=== PATIENT | female | born 1975 | race Caucasian/White ===

== ENCOUNTER 2018-07-18 06:09 | Inpatient (IN) | payer MEDICAID ==
[~2018-07-18] VITALS: Ht 162.6 cm; Wt 87.4 kg
[~2018-07-18 06:09] MED LIST: LOVA1TAB62; OME20GT; SUMA25TA2
[2018-07-18 07:20] LABS: Basophils # (auto) 0.1 uL; Basophils % (auto) 0.4 % (0.0-2.0); Eosinophils # (auto) 0.1 uL; Eosinophils % (auto) 0.6 % (0.0-7.0); Hematocrit 40.4 % (36.0-46.0); Hemoglobin 13.5 g/dL (12.2-16.2); Lymphocytes # (auto) 1.5 uL; Lymphocytes % (auto) 11.7 % (10.0-50.0); Mean Corpuscular Hemoglobin 29.8 pg (28.0-32.0); Mean Corpuscular Hgb Conc. 33.6 g/dL (32.0-36.0); Mean Corpuscular Volume 88.8 fL (80.0-100.0); Monocytes # (auto) 0.6 uL; Monocytes % (auto) 4.4 % (0.0-12.0); Neutrophils # (auto) 10.4 uL; Neutrophils % (auto) 82.9 % (37.0-80.0); Platelet Count (auto) 397 10^3/uL (140-450); Red Blood Cells 4.55 10^6/uL (4.0-5.20); Red Cell Distribution Width 13.8 % (11.8-14.3); White Blood Cell 12.6 10^3/uL (4.4-10.8)
[2018-07-18 07:28] LABS: Alanine Aminotransferase 23 U/L (13-56); Anion Gap 12 (5-15); Aspartate Aminotransferase 27 U/L (15-37); Blood Urea Nitrogen 13 mg/dL (7-18); Calcium 8.5 mg/dL (8.5-10.1); Carbon Dioxide 18 mmol/L (21-32); Chloride 104 mmol/L (98-107); GFR African American 57 mL/min; GFR Non-African American 47 mL/min; Glucose 86 mg/dL (74-106); Potassium 3.7 mmol/L (3.5-5.1); Sodium 134 mmol/L (136-145)
[2018-07-18 07:38] LABS: Alkaline Phosphatase 164 U/L (45-117); Bilirubin, Total 0.7 mg/dL (0.2-1.0); Total Protein 8.5 g/dL (6.4-8.2)
[2018-07-18] MEDS ORDERED: SODIUM CHLORIDE 0.9% 1,000 ML IV ONE (08:15)
[2018-07-18] MEDS ORDERED: KETOROLAC TROMETH 30 MG/ML 1ML VIAL IV ONE (08:15)
[2018-07-18 08:34] LABS: Urine Bacteria FEW /hpf (None Seen); Urine Blood 3+ /uL (Negative); Urine Specific Gravity 1.015 (1.001-1.035); Urine WBC 31 /hpf (0 - 5)
[2018-07-18] MEDS ORDERED: MORPHINE SULFATE 4 MG/ML SYR/VIAL IV PRN (11:00)
[2018-07-18] MEDS ORDERED: cefTRIAXone 1GM/10ml IVPUSH 10 ML IV ONE (11:00)
[2018-07-18] MEDS ORDERED: FAMOTIDINE (10MG/ML) 2ML VL IV SCH (11:00)
[2018-07-18] MEDS ORDERED: ACETAMINOPHEN 500 MG TAB PO PRN (11:00)
[2018-07-18] MEDS ORDERED: NITROGLYCERIN 0.4 MG SL TAB SL PRN (11:00)
[2018-07-18] MEDS ORDERED: TEMAZEPAM 15 MG CAP PO PRN (11:00)
[2018-07-18] MEDS: PANTOPRAZOLE 40 MG TAB PO SCH (11:39)
[2018-07-18] MEDS: SODIUM CHLORIDE 0.9% 1,000 ML IV SCH ×2 (11:39→18:39)
[2018-07-18] MEDS ORDERED: SULF400T11 PO (13:19)
[2018-07-18] MEDS ORDERED: HYDR-4683 PO (13:19)
[2018-07-18] MEDS ORDERED: ATOR40TA52 PO (13:19)
[2018-07-18] MEDS ORDERED: AMLO5TAB13 PO (13:19)
[2018-07-18] MEDS: ONDANSETRON HCL 4 MG/2 ML VIAL IV PRN (16:35)
[2018-07-18] MEDS: KETOROLAC TROMETH 30 MG/ML 1ML VIAL IV PRN (16:35)
[2018-07-18 16:47] VITALS: BP 128/86
[2018-07-18 20:00] VITALS: BP 136/94
[2018-07-18] MEDS: traMADol HCL 50 MG TAB PO PRN (21:36)
[2018-07-18] MEDS: LORazepam 0.5 MG TAB PO PRN (21:37)
[2018-07-18 21:48] VITALS: BP 136/94
[2018-07-19] MEDS: SODIUM CHLORIDE 0.9% 1,000 ML IV SCH ×3 (02:46→19:01)
[2018-07-19 04:55] VITALS: BP 143/94
[2018-07-19 06:10] LABS: Basophils # (auto) 0 uL; Basophils % (auto) 0.3 % (0.0-2.0); Eosinophils # (auto) 0.1 uL; Eosinophils % (auto) 0.6 % (0.0-7.0); Hematocrit 34.5 % (36.0-46.0); Hemoglobin 11.6 g/dL (12.2-16.2); Lymphocytes # (auto) 1.4 uL; Lymphocytes % (auto) 13.1 % (10.0-50.0); Mean Corpuscular Hemoglobin 29.6 pg (28.0-32.0); Mean Corpuscular Hgb Conc. 33.7 g/dL (32.0-36.0); Mean Corpuscular Volume 87.7 fL (80.0-100.0); Monocytes # (auto) 1.5 uL; Monocytes % (auto) 13.4 % (0.0-12.0); Neutrophils # (auto) 7.9 uL; Neutrophils % (auto) 72.6 % (37.0-80.0); Platelet Count (auto) 339 10^3/uL (140-450); Red Blood Cells 3.93 10^6/uL (4.0-5.20); Red Cell Distribution Width 13.7 % (11.8-14.3); White Blood Cell 10.9 10^3/uL (4.4-10.8)
[2018-07-19 06:32] LABS: Albumin 2.6 g/dL (3.4-5.0); BUN/Creatinine Ratio 10.2; Bilirubin, Total 0.4 mg/dL (0.2-1.0); Calcium 8.1 mg/dL (8.5-10.1); Potassium 3.5 mmol/L (3.5-5.1); Total Protein 7.1 g/dL (6.4-8.2)
[2018-07-19 09:00] VITALS: BP 133/84
[2018-07-19] MEDS: PANTOPRAZOLE 40 MG TAB PO SCH (10:19)
[2018-07-19] MEDS: cefTRIAXone 1GM/10ml IVPUSH 10 ML IV SCH (10:19)
[2018-07-19 13:04] VITALS: BP 138/75
[2018-07-19] MEDS: ONDANSETRON HCL 4 MG/2 ML VIAL IV PRN (15:40)
[2018-07-19] MEDS: KETOROLAC TROMETH 30 MG/ML 1ML VIAL IV PRN (15:43)
[2018-07-19 17:00] VITALS: BP 137/77
[2018-07-19 21:40] VITALS: BP 145/87
[2018-07-20] MEDS: KETOROLAC TROMETH 30 MG/ML 1ML VIAL IV PRN ×2 (00:19→18:32)
[2018-07-20] MEDS: ONDANSETRON HCL 4 MG/2 ML VIAL IV PRN (00:29)
[2018-07-20] MEDS: LORazepam 0.5 MG TAB PO PRN (00:29)
[2018-07-20] MEDS: SODIUM CHLORIDE 0.9% 1,000 ML IV SCH ×3 (02:46→18:46)
[2018-07-20 05:49] VITALS: BP 141/87
[2018-07-20 07:19] LABS: Basophils # (auto) 0.1 uL; Basophils % (auto) 0.6 % (0.0-2.0); Eosinophils # (auto) 0.1 uL; Eosinophils % (auto) 1.3 % (0.0-7.0); Lymphocytes # (auto) 2.1 uL; Lymphocytes % (auto) 20.5 % (10.0-50.0); Mean Corpuscular Hemoglobin 28.9 pg (28.0-32.0); Mean Corpuscular Hgb Conc. 33.5 g/dL (32.0-36.0); Mean Corpuscular Volume 86.3 fL (80.0-100.0); Monocytes # (auto) 1.7 uL; Monocytes % (auto) 16.2 % (0.0-12.0); Neutrophils # (auto) 6.4 uL; Neutrophils % (auto) 61.4 % (37.0-80.0); Platelet Count (auto) 368 10^3/uL (140-450); Red Blood Cells 3.83 10^6/uL (4.0-5.20); Red Cell Distribution Width 13.8 % (11.8-14.3); White Blood Cell 10.4 10^3/uL (4.4-10.8)
[2018-07-20 07:29] LABS: BUN/Creatinine Ratio 16.5; Calcium 8.2 mg/dL (8.5-10.1); Potassium 3.9 mmol/L (3.5-5.1)
[2018-07-20] MEDS: traMADol HCL 50 MG TAB PO PRN (07:46)
[2018-07-20] MEDS ORDERED: TAMSULOSIN HYDROCHLORIDE 0.4 MG CAP PO ONE (08:30)
[2018-07-20 09:00] VITALS: BP 147/92
[2018-07-20] MEDS: cefTRIAXone 1GM/10ml IVPUSH 10 ML IV SCH (10:26)
[2018-07-20] MEDS: PANTOPRAZOLE 40 MG TAB PO SCH (10:26)
[2018-07-20 13:00] VITALS: BP 144/94
[2018-07-20 17:00] VITALS: BP 149/92
[2018-07-20] MEDS: TAMSULOSIN HYDROCHLORIDE 0.4 MG CAP PO SCH (22:08)
[2018-07-20 22:29] VITALS: BP 142/92
[2018-07-21] MEDS: LORazepam 0.5 MG TAB PO PRN ×3 (00:11→21:12)
[2018-07-21] MEDS: traMADol HCL 50 MG TAB PO PRN ×2 (00:11→17:17)
[2018-07-21] MEDS: KETOROLAC TROMETH 30 MG/ML 1ML VIAL IV PRN ×3 (01:49→21:12)
[2018-07-21] MEDS: SODIUM CHLORIDE 0.9% 1,000 ML IV SCH ×3 (02:47→21:12)
[2018-07-21 05:35] VITALS: BP 131/90
[2018-07-21 06:44] LABS: Basophils # (auto) 0.1 uL; Basophils % (auto) 0.5 % (0.0-2.0); Eosinophils # (auto) 0.2 uL; Eosinophils % (auto) 1.9 % (0.0-7.0); Hematocrit 32.9 % (36.0-46.0); Lymphocytes # (auto) 2.5 uL; Lymphocytes % (auto) 24.3 % (10.0-50.0); Mean Corpuscular Hemoglobin 29.1 pg (28.0-32.0); Mean Corpuscular Hgb Conc. 33.4 g/dL (32.0-36.0); Mean Corpuscular Volume 87.2 fL (80.0-100.0); Monocytes # (auto) 1.6 uL; Monocytes % (auto) 15.8 % (0.0-12.0); Neutrophils # (auto) 5.9 uL; Neutrophils % (auto) 57.5 % (37.0-80.0); Nucleated Red Blood Cells % 0.1 %; Platelet Count (auto) 371 10^3/uL (140-450); Red Blood Cells 3.78 10^6/uL (4.0-5.20); Red Cell Distribution Width 13.6 % (11.8-14.3); White Blood Cell 10.3 10^3/uL (4.4-10.8)
[2018-07-21 07:09] LABS: Calcium 8.4 mg/dL (8.5-10.1); Potassium 3.6 mmol/L (3.5-5.1)
[2018-07-21 09:00] VITALS: BP 122/79
[2018-07-21] MEDS ORDERED: IOHEXOL 350 MG/ML 100ML IJ ONE (09:47)
[2018-07-21] MEDS ORDERED: LIDOCAINE 2% (LOCAL ANESTH.) PF 5ml SDV ONE ×3 (09:47→11:51)
[2018-07-21] MEDS: PANTOPRAZOLE 40 MG TAB PO SCH (10:00)
[2018-07-21 10:16] LABS: INR 1.02 (0.9-1.15); Partial Thromboplastin Time 29.4 sec (23.78-33.04); Prothrombin Time 10.9 sec (9.27-12.13)
[2018-07-21] MEDS ORDERED: MIDAZOLAM HCL 1MG/1ML-2 ML VIAL ONE (11:02)
[2018-07-21] MEDS ORDERED: fentaNYL CITRATE 100 MCG/2 ML VL ONE (11:02)
[2018-07-21] MEDS: cefTRIAXone 1GM/10ml IVPUSH 10 ML IV SCH (11:46)
[2018-07-21] MEDS ORDERED: ONDANSETRON HCL 4 MG/2 ML VIAL ONE (12:29)
[2018-07-21 14:54] VITALS: BP 146/86
[2018-07-21] MEDS: VANCOMYCIN 1GM/250ML 250 ML IV SCH (15:42)
[2018-07-21] MEDS: TAMSULOSIN HYDROCHLORIDE 0.4 MG CAP PO SCH (17:16)
[2018-07-21] MEDS: ONDANSETRON HCL 4 MG/2 ML VIAL IV PRN ×2 (17:16→21:12)
[2018-07-21 17:33] VITALS: BP 140/80
[2018-07-21 23:05] VITALS: BP 155/94
[2018-07-22] MEDS: traMADol HCL 50 MG TAB PO PRN ×3 (02:31→20:50)
[2018-07-22] MEDS: SODIUM CHLORIDE 0.9% 1,000 ML IV SCH ×3 (02:46→18:48)
[2018-07-22] MEDS: VANCOMYCIN 1GM/250ML 250 ML IV SCH ×2 (04:20→16:54)
[2018-07-22 05:13] LABS: Basophils # (auto) 0 uL; Basophils % (auto) 0.3 % (0.0-2.0); Eosinophils # (auto) 0.1 uL; Eosinophils % (auto) 0.4 % (0.0-7.0); Hematocrit 31.4 % (36.0-46.0); Hemoglobin 10.5 g/dL (12.2-16.2); Lymphocytes # (auto) 1.8 uL; Lymphocytes % (auto) 11.7 % (10.0-50.0); Mean Corpuscular Hgb Conc. 33.3 g/dL (32.0-36.0); Mean Corpuscular Volume 87.1 fL (80.0-100.0); Monocytes # (auto) 1.5 uL; Monocytes % (auto) 9.8 % (0.0-12.0); Neutrophils # (auto) 12.2 uL; Neutrophils % (auto) 77.8 % (37.0-80.0); Platelet Count (auto) 389 10^3/uL (140-450); Red Cell Distribution Width 13.8 % (11.8-14.3); White Blood Cell 15.7 10^3/uL (4.4-10.8)
[2018-07-22 05:24] VITALS: BP 123/82
[2018-07-22 05:42] LABS: BUN/Creatinine Ratio 15.5; Calcium 7.9 mg/dL (8.5-10.1); Potassium 3.7 mmol/L (3.5-5.1)
[2018-07-22] MEDS: KETOROLAC TROMETH 30 MG/ML 1ML VIAL IV PRN ×3 (07:08→23:04)
[2018-07-22] MEDS: LORazepam 0.5 MG TAB PO PRN ×3 (07:09→20:53)
[2018-07-22 09:00] VITALS: BP 140/96
[2018-07-22] MEDS: cefTRIAXone 1GM/10ml IVPUSH 10 ML IV SCH (09:42)
[2018-07-22] MEDS: PANTOPRAZOLE 40 MG TAB PO SCH (09:42)
[2018-07-22 13:00] VITALS: BP 124/71
[2018-07-22] MEDS ORDERED: LIDOCAINE 1% (LOCAL ANESTH.) PF 5ml SDV ID ONE (15:30)
[2018-07-22 16:49] VITALS: BP 136/73
[2018-07-22] MEDS: TAMSULOSIN HYDROCHLORIDE 0.4 MG CAP PO SCH (16:54)
[2018-07-22] MEDS: ONDANSETRON HCL 4 MG/2 ML VIAL IV PRN ×2 (16:55→20:51)
[2018-07-22] MEDS: SODIUM CHLOR 0.9% PF (SALINE LOCK) 10ML VIAL/SYR IV SCH (21:06)
[2018-07-22 22:00] VITALS: BP 112/55
[2018-07-23] MEDS: VANCOMYCIN 1GM/250ML 250 ML IV SCH (04:28)
[2018-07-23 05:00] VITALS: BP 120/79
[2018-07-23] MEDS: SODIUM CHLORIDE 0.9% 1,000 ML IV SCH ×3 (05:25→18:11)
[2018-07-23] MEDS: KETOROLAC TROMETH 30 MG/ML 1ML VIAL IV PRN (05:25)
[2018-07-23] MEDS: ONDANSETRON HCL 4 MG/2 ML VIAL IV PRN ×2 (05:25→19:49)
[2018-07-23 05:37] LABS: Basophils # (auto) 0 uL; Basophils % (auto) 0.3 % (0.0-2.0); Eosinophils # (auto) 0.2 uL; Eosinophils % (auto) 1.4 % (0.0-7.0); Hematocrit 29.4 % (36.0-46.0); Hemoglobin 9.6 g/dL (12.2-16.2); Lymphocytes # (auto) 2.5 uL; Lymphocytes % (auto) 18.7 % (10.0-50.0); Mean Corpuscular Hemoglobin 28.8 pg (28.0-32.0); Mean Corpuscular Hgb Conc. 32.8 g/dL (32.0-36.0); Mean Corpuscular Volume 87.8 fL (80.0-100.0); Monocytes # (auto) 1.5 uL; Monocytes % (auto) 11.2 % (0.0-12.0); Neutrophils # (auto) 9.1 uL; Neutrophils % (auto) 68.4 % (37.0-80.0); Platelet Count (auto) 408 10^3/uL (140-450); Red Blood Cells 3.35 10^6/uL (4.0-5.20); Red Cell Distribution Width 13.8 % (11.8-14.3); White Blood Cell 13.3 10^3/uL (4.4-10.8)
[2018-07-23 05:53] LABS: BUN/Creatinine Ratio 16.7; Calcium 7.7 mg/dL (8.5-10.1); Potassium 3.6 mmol/L (3.5-5.1)
[2018-07-23 09:00] VITALS: BP 112/68
[2018-07-23] MEDS: cefTRIAXone 1GM/10ml IVPUSH 10 ML IV SCH (09:23)
[2018-07-23] MEDS: SODIUM CHLOR 0.9% PF (SALINE LOCK) 10ML VIAL/SYR IV SCH ×2 (09:23→22:03)
[2018-07-23] MEDS: PANTOPRAZOLE 40 MG TAB PO SCH (09:24)
[2018-07-23] MEDS: traMADol HCL 50 MG TAB PO PRN ×2 (12:14→18:12)
[2018-07-23 13:00] VITALS: BP 130/72
[2018-07-23] MEDS ORDERED: MIDAZOLAM HCL 1MG/1ML-2 ML VIAL ONE (13:21)
[2018-07-23] MEDS ORDERED: fentaNYL CITRATE 100 MCG/2 ML VL ONE (13:21)
[2018-07-23] MEDS ORDERED: IOHEXOL 300 MG/ML 100ML BOTTLE IJ ONE (13:27)
[2018-07-23] MEDS ORDERED: LIDOCAINE 2% (LOCAL ANESTH.) PF 5ml SDV ONE (13:32)
[2018-07-23] MEDS ORDERED: GELATIN 1 SPONGE SIZE 100 TOP ONE (13:32)
[2018-07-23] MEDS ORDERED: IOHEXOL 350 MG/ML 100ML IJ ONE (14:21)
[2018-07-23] MEDS ORDERED: LACTULOSE 20Gm/30ML SOLN PO PRN (16:15)
[2018-07-23] MEDS: LINEZOLID 600MG TABLET PO SCH ×2 (16:26→22:04)
[2018-07-23 16:43] VITALS: BP 130/68
[2018-07-23] MEDS: TAMSULOSIN HYDROCHLORIDE 0.4 MG CAP PO SCH (18:11)
[2018-07-23] MEDS: LORazepam 0.5 MG TAB PO PRN (19:50)
[2018-07-23 22:00] VITALS: BP 124/77
[2018-07-23] MEDS: DOCUSATE SOD 100 MG CAP PO SCH (22:04)
[2018-07-24] MEDS: SODIUM CHLORIDE 0.9% 1,000 ML IV SCH ×3 (02:28→17:43)
[2018-07-24 05:00] VITALS: BP 109/76
[2018-07-24] MEDS: traMADol HCL 50 MG TAB PO PRN ×3 (06:45→22:49)
[2018-07-24 07:37] LABS: Basophils # (auto) 0.1 uL; Basophils % (auto) 0.4 % (0.0-2.0); Eosinophils # (auto) 0.2 uL; Eosinophils % (auto) 1.5 % (0.0-7.0); Hematocrit 28.6 % (36.0-46.0); Hemoglobin 9.5 g/dL (12.2-16.2); Lymphocytes # (auto) 2.4 uL; Lymphocytes % (auto) 19.5 % (10.0-50.0); Mean Corpuscular Hemoglobin 28.7 pg (28.0-32.0); Mean Corpuscular Hgb Conc. 33.2 g/dL (32.0-36.0); Mean Corpuscular Volume 86.4 fL (80.0-100.0); Monocytes % (auto) 8.1 % (0.0-12.0); Neutrophils # (auto) 8.8 uL; Neutrophils % (auto) 70.5 % (37.0-80.0); Platelet Count (auto) 435 10^3/uL (140-450); Red Blood Cells 3.31 10^6/uL (4.0-5.20); White Blood Cell 12.5 10^3/uL (4.4-10.8)
[2018-07-24 07:50] LABS: BUN/Creatinine Ratio 8.5; Calcium 8.1 mg/dL (8.5-10.1); Potassium 3.8 mmol/L (3.5-5.1)
[2018-07-24 08:39] VITALS: BP 114/76
[2018-07-24] MEDS: SODIUM CHLOR 0.9% PF (SALINE LOCK) 10ML VIAL/SYR IV SCH ×2 (09:38→22:00)
[2018-07-24] MEDS: DOCUSATE SOD 100 MG CAP PO SCH ×2 (09:38→22:49)
[2018-07-24] MEDS: PANTOPRAZOLE 40 MG TAB PO SCH (09:38)
[2018-07-24] MEDS: LINEZOLID 600MG TABLET PO SCH ×2 (09:38→22:49)
[2018-07-24 11:51] VITALS: BP 118/86
[2018-07-24] MEDS: LORazepam 0.5 MG TAB PO PRN ×3 (11:57→22:49)
[2018-07-24 16:23] VITALS: BP 130/85
[2018-07-24] MEDS: TAMSULOSIN HYDROCHLORIDE 0.4 MG CAP PO SCH (17:43)
[2018-07-24 22:00] VITALS: BP 141/83
[2018-07-25] MEDS: SODIUM CHLORIDE 0.9% 1,000 ML IV SCH ×2 (02:46→11:22)
[2018-07-25 05:00] VITALS: BP 115/68
[2018-07-25 07:55] LABS: Basophils # (auto) 0.1 uL; Basophils % (auto) 0.5 % (0.0-2.0); Eosinophils # (auto) 0.2 uL; Eosinophils % (auto) 1.7 % (0.0-7.0); Hematocrit 29.5 % (36.0-46.0); Hemoglobin 9.7 g/dL (12.2-16.2); Lymphocytes # (auto) 2.1 uL; Lymphocytes % (auto) 18.7 % (10.0-50.0); Mean Corpuscular Hemoglobin 28.8 pg (28.0-32.0); Mean Corpuscular Hgb Conc. 32.8 g/dL (32.0-36.0); Mean Corpuscular Volume 87.8 fL (80.0-100.0); Monocytes # (auto) 0.9 uL; Monocytes % (auto) 8.2 % (0.0-12.0); Neutrophils # (auto) 7.9 uL; Neutrophils % (auto) 70.9 % (37.0-80.0); Platelet Count (auto) 450 10^3/uL (140-450); Red Blood Cells 3.36 10^6/uL (4.0-5.20); Red Cell Distribution Width 14.3 % (11.8-14.3); White Blood Cell 11.2 10^3/uL (4.4-10.8)
[2018-07-25 08:09] LABS: BUN/Creatinine Ratio 11.8; Calcium 8.2 mg/dL (8.5-10.1); Potassium 3.6 mmol/L (3.5-5.1)
[2018-07-25 08:49] VITALS: BP 115/72
[2018-07-25] MEDS: LINEZOLID 600MG TABLET PO SCH (11:20)
[2018-07-25] MEDS: PANTOPRAZOLE 40 MG TAB PO SCH (11:20)
[2018-07-25] MEDS: DOCUSATE SOD 100 MG CAP PO SCH (11:21)
[2018-07-25] MEDS: SODIUM CHLOR 0.9% PF (SALINE LOCK) 10ML VIAL/SYR IV SCH (11:21)
[2018-07-25 11:25] VITALS: BP 157/97
== END 2018-07-25 16:20 | disposition home or self-care (01) | DRG 720 ==
LOC: EDBD 06:09 → ER 06:10 → TELE 06:11 → TELE-WESTW 14:48
PROVIDERS: ADMIT Internal Medicine; ATTEND Internal Medicine
PROC: 0T9430Z Drainage of Left Kidney Pelvis with Drainage Device, Percutaneous Approach (ICD-10-PCS; principal; 2018-07-21)
PROC: BT1F1ZZ Fluoroscopy of Left Kidney, Ureter and Bladder using Low Osmolar Contrast (ICD-10-PCS; 2018-07-21)
PROC: 02HV33Z Insertion of Infusion Device into Superior Vena Cava, Percutaneous Approach (ICD-10-PCS; 2018-07-22)
DX: A41.9 Sepsis, unspecified organism (principal); N17.0 Acute kidney failure with tubular necrosis; E87.1 Hypo-osmolality and hyponatremia; N13.6 Pyonephrosis; N28.1 Cyst of kidney, acquired; E44.1 Mild protein-calorie malnutrition; N83.202 Unspecified ovarian cyst, left side; I10 Essential (primary) hypertension; F41.9 Anxiety disorder, unspecified; E78.5 Hyperlipidemia, unspecified; E66.3 Overweight; Z82.3 Family history of stroke; Z82.49 Family history of ischemic heart disease and other diseases of the circulatory system; Z83.3 Family history of diabetes mellitus; Z87.442 Personal history of urinary calculi; Z87.440 Personal history of urinary (tract) infections; Z98.51 Tubal ligation status; Z90.49 Acquired absence of other specified parts of digestive tract; Z79.899 Other long term (current) drug therapy; Z68.33 Body mass index [BMI] 33.0-33.9, adult
CPT/HCPCS: 36415; 36569; 71045; 74176; 76856; 76942; 80048; 80053; 80202; 81001; 81025; 85025; 85610; 85730; 87086; 87088; 87186; 96361; 96374; 96375; 99152; A6257; C1729; J0696; J1885; J2001; J2250; J2405

== ENCOUNTER → 2018-08-05 | Outpatient (CLI) | payer MEDICAID ==
[~2018-08-05] MED LIST changes: +AMLO5TAB13 PO; +ATOR40TA52 PO; +HYDR-4683 PO; +IOHEXOL 300 MG/ML 100ML BOTTLE IJ ONE; -LOVA1TAB62; -OME20GT; -SUMA25TA2
== END | disposition home or self-care (01) ==
LOC: XY 13:37
PROVIDERS: ATTEND Urology
DX: N99.528 Other complication of incontinent external stoma of urinary tract (principal)
CPT/HCPCS: 50389; 76000; Q9967

== ENCOUNTER 2019-02-26 10:33 | Emergency (ER) | payer MEDICAID ==
[~2019-02-26] VITALS: Ht 165.1 cm; Wt 83.9 kg
[~2019-02-26 10:33] MED LIST changes: -IOHEXOL 300 MG/ML 100ML BOTTLE IJ ONE
[2019-02-26 11:16] VITALS: BP 150/71
== END 2019-02-26 12:42 | disposition home or self-care (01) ==
LOC: ER 10:33
DX: R05 Cough (principal); T46.5X5A Adverse effect of other antihypertensive drugs, initial encounter; E78.5 Hyperlipidemia, unspecified; I10 Essential (primary) hypertension; Z90.49 Acquired absence of other specified parts of digestive tract; Z87.442 Personal history of urinary calculi; Z98.51 Tubal ligation status; Y92.89 Other specified places as the place of occurrence of the external cause

== ENCOUNTER 2023-12-15 05:28 | Emergency (ER) | payer MEDICAID ==
[~2023-12-15] VITALS: Ht 167.6 cm; Wt 286.0 kg
[~2023-12-15 05:28] MED LIST changes: +ALBUAER3 IN; -AMLO5TAB13 PO; +ASPI-543 PO; +ATOR-47 PO; -ATOR40TA52 PO; +DEXA6TAB6 PO; -HYDR-4683 PO; +LOPE2CAP PO; +ONDA-144 PO
[2023-12-15] MEDS ORDERED: NALOXONE HCL 1MG/ML 2ML SYRINGE ONE (05:40)
[2023-12-15 07:32] LABS: Basophils # (auto) 0 10 ^3/uL (0-0.2); Basophils % (auto) 0.4 % (0.0-2.0); Eosinophils # (auto) 0 10 ^3/uL (0-0.8); Eosinophils % (auto) 0.3 % (0.0-7.0); Hematocrit 41.5 % (36.0-46.0); Hemoglobin 14.1 g/dL (12.2-16.2); Lymphocytes # (auto) 1.1 10 ^3/uL (0.4-5.4); Lymphocytes % (auto) 11.7 % (10.0-50.0); Mean Corpuscular Hemoglobin 29.5 pg (28.0-32.0); Mean Corpuscular Hgb Conc. 33.9 g/dL (32.0-36.0); Monocytes # (auto) 0.4 10 ^3/uL (0-1.3); Monocytes % (auto) 4.7 % (0.0-12.0); Neutrophils # (auto) 7.9 10 ^3/uL (1.6-8.6); Neutrophils % (auto) 82.9 % (37.0-80.0); Red Blood Cells 4.77 10^6/uL (4.0-5.20); Red Cell Distribution Width 14.1 % (11.8-14.3); White Blood Cell 9.5 10^3/uL (4.4-10.8)
[2023-12-15] MEDS: NALOXONE HCL 1MG/ML 2ML SYRINGE IV ONE ×2 (07:37)
[2023-12-15 07:56] VITALS: BP 118/71; PULSE 61; RESP 16; TEMP 98.2; O2SAT 97
[2023-12-15 08:17] LABS: Alanine Aminotransferase 24 U/L (7-40); Albumin 4.7 g/dL (3.2-4.8); Alkaline Phosphatase 76 U/L (46-116); Anion Gap 10 (5-15); Aspartate Aminotransferase 12 U/L (13-40); Bilirubin, Total 0.9 mg/dL (0.2-1.0); Blood Urea Nitrogen 18 mg/dL (9-23); Calcium 9.8 mg/dL (8.7-10.4); Carbon Dioxide 27 mmol/L (20-30); Chloride 103 mmol/L (98-107); Glucose 203 mg/dL (74-106); Potassium 2.9 mmol/L (3.5-5.1); Sodium 140 mmol/L (136-145); Total Protein 7.5 g/dL (5.7-8.2)
[2023-12-15 09:09] LABS: Blood Alcohol < 3.0 mg/dL (<10)
== END 2023-12-15 09:16 | disposition home or self-care (01) ==
LOC: ER 05:28 → EDBD 05:28 → ER 09:16
DX: F19.90 Other psychoactive substance use, unspecified, uncomplicated (principal); I10 Essential (primary) hypertension; E78.5 Hyperlipidemia, unspecified; Z90.49 Acquired absence of other specified parts of digestive tract; Z79.82 Long term (current) use of aspirin; Z79.899 Other long term (current) drug therapy
CPT/HCPCS: 36415; 80053; 80320; 85025; 93005; 99284; J2310

== ENCOUNTER 2024-10-11 00:35 | Emergency (ER) | payer MEDICAID, SELFPAY ==
[~2024-10-11] VITALS: Ht 167.6 cm; Wt 89.0 kg
[2024-10-11] MEDS: LIDOCAINE W/ EPINEPHRINE 1% 20ML VIAL ID ONE (01:15)
[2024-10-11] MEDS: LIDOCAINE 1% HCL (LOCAL ANESTH.) INJ 20ML MDV ID ONE (01:15)
[2024-10-11] MEDS ORDERED: Surgicel PA 2X3 INCH TOP ONE (01:15)
[2024-10-11] MEDS ORDERED: TRANEXAMIC ACID 1,000 MG in SODIUM CHL 0.9% 100 ML IV ONE (01:15)
[2024-10-11] MEDS: TETANUS-DIPTH-ACEL PERTUSSIS 0.5ML SYR Tdap IM ONE (01:45)
--- NOTE | 2024-10-11 01:45 | ED.PDOC ---
HPI Comments A 49-YEAR-OLD FEMALE PATIENT PRESENTS TO THE ED STATUS POST HEAD INJURY. PATIENT COMPLAINING OF LACERATION TO THE MID FOREHEAD. PATIENT STATES SHE WAS TYING HER SHOE ON A TABLE IN THE MINI FRIDGE ON THE TABLE TIPPED STRIKING HER IN THE FOREHEAD CAUSING A LACERATION. SHE DENIES LOC. HIS NECK PAIN. BLEEDING CONTROLLED IN TRIAGE. WHAT IS NO DIZZINESS BLURRED VISION NAUSEA OR VOMITING. Chief Complaint: Laceration Time Seen by MD: 00:47 Primary Care Provider: UNKNOWN Reviewed Notes: Nurses Notes, Medications, Allergies Allergies: Coded Allergies: NO KNOWN ALLERGIES (Unverified , 07/11/11) Home Meds Active Scripts Dexamethasone (Decadron) 6 Mg Tab, 6 MG PO DAILY, #5 TAB Prov:WILBUR ALMANZA MD 12/01/20 Albuterol Sulfate (VENTOLIN MDI) 90 Mcg Ih, 90 MCG IN Q6HP PRN for SHORTNESS OF BREATH, #1 INHALER Prov:WILBUR ALMANZA MD 12/01/20 Reported Medications Loperamide Hcl (Loperamide Hcl) 2 Mg Cap, 2 MG PO Q6HPRN PRN for FOR DIARRHEA, MG 11/28/20 Ondansetron (Zofran) 4 Mg Tab, 4 MG PO PRN PRN for NAUSEA / VOMITING, MG 11/28/20 Aspirin (Aspir-Low) 81 Mg Tab, 81 MG PO DAILY for 30 Days, MG 11/28/20 Atorvastatin Calcium (ATORVASTATIN CALCIUM) 80 Mg Tab, 1 TAB PO DAILY, #30 TAB 5 Refills 11/28/20 Information Source: Patient Mode of Arrival: Ambulatory Complexity: Intermediate Laceration Length (cm): 2 Past Medical History PAST MEDICAL HISTORY: Anxiety, High Lipids, HTN, Kidney Stones, UTI'S Surgical History: Appendectomy, Tubal Ligation [employer] History: No Pertinent [employer] History Family History Family History: No family hx of DM, No family hx of Heart kiara, No family hx of HTN Social History Smoker: Non-Smoker Alcohol: Denies ETOH Use Drugs: Denies Drug Use Lives In: Home Constitutional: denies: chills, diaphoresis, fatigue, fever, malaise, sweats, weakness, others EENTM: denies: blurred vision, double vision, ear bleeding, ear discharge, ear drainage, ear pain, ear ringing, eye pain, eye redness, hearing loss, mouth pain, mouth swelling, nasal discharge, nose bleeding, nose congestion, nose pain, photophobia, tearing, throat pain, throat swelling, voice changes, others Respiratory: denies: cough, hemoptysis, orthopnea, SOB at rest, shortness of breath, SOB with excertion, stridor, wheezing, others Cardiovascular: denies: chest pain, dizzy spells, diaphoresis, Dyspnea on exertion, edema, irregular heart beat, left arm pain, lightheadedness, palpitations, PND, syncope, others Gastrointestinal: denies: abdomen distended, abdominal pain, blood streaked bowels, constipated, diarrhea, dysphagia, difficulty swallowing, hematemesis, melena, nausea, poor appetite, poor fluid intake, rectal bleeding, rectal pain, vomiting, others Genitourinary: denies: abnormal vagina bleeding, burning, dyspareunia, dysuria, flank pain, frequency, hematuria, incontinence, pain, , vagina discharge, urgency, others Neurological: denies: dizziness, fainting, headache, left sided numbness, left sided weakness, numbness, paresthesia, pre-existing deficit, right sided numbness, right sided weakness, seizure, speech problems, tingling, tremors, weakness, others Musculoskeletal: denies: back pain, gout, joint pain, joint swelling, muscle pain, muscle stiffness, neck pain, others Integumetry: reports: laceration (MID FOREHEAD); denies: bruises, change in color, change in hair/nails, dryness, lesions, lumps, rash, wounds, others Allergic/Immunocompromised: denies: Difficulty Healing, Frequent Infections, Hives, Itching, others Hematologic/Lymphatic: denies: anemia, blood clots, easy bleeding, easy bruising, swollen glands, others Endocrine: denies: excessive hunger, excessive sweating, excessive thirst, excessive urination, flushing, intolerance to cold, intolerance to heat, unexplained weight gain, unexplained weight loss, others Psychiatric: denies: anxiety, bipolar disorder, depression, hopeless, panic disorder, schizophrenia, sleepless, suicidal, others Physical Exam General Appearance: No Apparent Distress, Normal HEENT: Head (1 IN FULL-THICKNESS LACERATION TO MID FOREHEAD BLEEDING CONTROLLED WITH EPI AND LIDOCAINE AND PRESSURE.), Pharynx Normal Neck: Full Range of Motion, Non-Tender Respiratory: Lungs Clear, No Respiratory Distress, Normal Breath Sounds Cardiovascular: No Murmur, Normal Peripheral Pulses, Regular Rate/Rhythm Breast Exam: Deferred Gastrointestinal: Non Tender, Soft Genitalia: Deferred Pelvic: Deferred Rectal: Deferred Extremities: Normal capillary refill, Normal inspection, Normal range of motion, Non-tender, No pedal edema Musculoskeletal : Apperance: Normal Neurologic: Alert, court deputy II-XII nml as Tested, No Motor Deficits, Normal Affect, Normal Mood, No Sensory Deficits Cerebellar Function: Normal Reflexes: Normal Skin: Dry, Normal Color, Warm Lymphatic: No Adenopathy Was a procedure done? Was a procedure done?: Yes Sedation Sedation?: No Informed consent obtained: Yes Laceration Repair : Location MID FOREHEAD Length 2 CM Anesthetic: Lidocaine, With epi Laceration Repair Prep: Saline, Betadine Laceration Repair Wound Comple: epidermis/dermis repair Laceration Repair: Number of sutures (5) Informed consent obtained: Yes Risks, benefits, and alternati: Yes Notes PATIENT TOLERATED PROCEDURE WELL Differential diagnosis Generic Laceration: Hematoma, Laceration X-Ray, Labs, Meds, VS Vital Signs Date Time Temp Pulse Resp B/P (MAP) Pulse Ox O2 Delivery O2 Flow Rate FiO2 10/11/24 00:48 98.8 136 18 148/97 (114) 95 Current Medications Medications (Trade) Dose Ordered Sig/Munir Route Start Time Stop Time Status Last Admin Lidocaine/ Epinephrine 5 ml ONCE ONCE ID 10/11/24 01:15 10/11/24 01:16 DC 10/11/24 01:15 Ceftriaxone Sodium (Rocephin) 1,000 mg ONCE ONCE IM 10/11/24 01:45 10/11/24 01:46 DC 10/11/24 02:19 Diphtheria/ Tetanus/Acell Pertussis (Boostrix T-Dap) 0.5 ml ONCE ONCE IM 10/11/24 01:45 10/11/24 01:46 DC 10/11/24 02:19 X-Ray, Labs, Meds, VS Comment SEE PROCEDURE NOTE. PATIENT GIVEN TETANUS AND ROCEPHIN. ADVISED TO FOLLOW UP URGENT CARE ER OR WITH HER PCP FOR SUTURE REMOVAL IN 7-10 DAYS. ADVISED TO REST LIGHT DIET INCREASE P.O. FLUIDS WITH ELECTROLYTES. ADVISED TO MONITOR FOR THE NEXT 24-48 HOURS ANY CHANGE IN MENTATION DIZZINESS CHEST PAIN SLURRED SPEECH OR ANY FOCAL NUMBNESS INTO THE ER. ER PRECAUTIONS GIVEN PATIENT INDICATED UNDERSTANDING AND AGREES WITH DISCHARGE PLAN OF CARE Time of 1ST Reevaluation: 02:16 Reevaluation 1ST: Improved Patient Education/Counseling: Diagnosis, Treatment, Prognosis, Need For Follow Up Family Education/Counseling: No Family Present Departure 1 Departure Time of Disposition: 02:16 Impression: Primary Impression: Laceration of forehead without complication Qualified Codes: S01.81XA - Laceration without foreign body of other part of head, initial encounter Disposition: HOME / SELF CARE / HOMELESS Condition: Stable e-Prescriptions Amoxicillin & Pot Clavulanate (AUGMENTIN TABLET) 875 Mg Tb 1 TAB PO BID for 7 Days, #14 TAB Prov: LUIS FRANKS 10/11/24 Discharged With: Other ([facility]) Critical Care Note Critical Care Time?: No Stability Stability form required: LUIS Gleason Oct 11, 2024 01:45
[2024-10-11] MEDS: cefTRIAXone SOD 1,000 MG VL IM ONE (02:19)
[2024-10-11] MEDS ORDERED: AUG875T PO (02:28)
[2024-10-11 03:00] VITALS: BP 139/83; PULSE 101; RESP 20; TEMP 98.1; O2SAT 94
== END 2024-10-11 03:00 | disposition home or self-care (01) ==
LOC: ER 00:35
DX: S01.81XA Laceration without foreign body of other part of head, initial encounter (principal); I10 Essential (primary) hypertension; E78.5 Hyperlipidemia, unspecified; F41.9 Anxiety disorder, unspecified; Z90.49 Acquired absence of other specified parts of digestive tract; Z98.890 Other specified postprocedural states; Z79.52 Long term (current) use of systemic steroids; Z79.82 Long term (current) use of aspirin; Z79.899 Other long term (current) drug therapy; W22.03XA Walked into furniture, initial encounter; Y93.89 Activity, other specified; Y92.89 Other specified places as the place of occurrence of the external cause; Y99.8 Other external cause status
CPT/HCPCS: 12011; 96372; 99283; J0696; 12013; 90715; J2003